=== PATIENT | male | born 1935 | race Hispanic/Latino ===

== ENCOUNTER 2020-01-25 14:18 | Inpatient (IN) | payer MEDICARE, OTHER ==
[~2020-01-25] VITALS: Ht 165.1 cm; Wt 105.7 kg
[~2020-01-25 14:18] MED LIST: ADVIL200 M1 PO; ASPIRIN81 MG PO; CARVEDILOL12.5 MG PO; CINNAMON500 MG PO; COREG; FINASTERIDE5 MG PO; GLIMEPIRIDE2 MG PO; HCTZ; HYDROCHLOROTHIA25 MG PO; LISINOPRIL10 MG PO; MAXZIDE; MELOXICAM7.5 MG PO; METFORMIN; PROAIR HFA INH8.5 GM INH; VANADYL SULFATE1 GM PO; Z.0.COREG12.5 MG PO; Z.0.HUMULIN R100 UNI; Z.0.LISINOPRIL10 MG PO; [UNRECOGNIZED DRUG - OTHER] PO; [UNRECOGNIZED DRUG - OTHER] TD
[2020-01-25] MEDS ORDERED: VANCOMYCIN 1GM/NS 250 ML 250 ML IV ONE (14:20)
[2020-01-25] MEDS ORDERED: ONDANSETRON HCL INJ 2MG/ML 2ML 2 MG/ML VIAL IV ONE (14:20)
[2020-01-25] MEDS ORDERED: SODIUM CHLORIDE 0.9% 1000ML 1,000 ML IV STA (14:20)
[2020-01-25] MEDS ORDERED: PIPER-TAZ 3.375 GM 50 ML IV ONE (14:20)
--- NOTE | 2020-01-25 14:31 | Emergency Department Note ---
History of Present Illnes History of Present Illness History of Present Illness This is a 84 year old male . presented to ed via ems c/o infected r foot x 5 days + swelling redness foul smell Arrival Mode: ems Onset (how long ago): day(s) (5 days) Radiation: non-radiation, back, neck, extremity, abdomen, periumbilical, flank, proximal, distal, other Severity: mild Onset quality: gradual Duration (how long): hour(s) (5 days) Timing of current episode: constant Progression: worsening Context: recent illness, recent surgery, recent immobilization, recent travel, trauma/injury, new medications, hx of DVT/PE, non-compliance w/ medications, other Relieving factors: none Exacerbating factors: none Treatments prior to arrival: none Past Medical/Family History Physician Review I have reviewed the patient's past medical and family history. Any updates have been documented here. Past Medical History Recent Fever: No Clinical Suspicion of Infectio: Yes New/Unexplained Change in Ment: No Other Surgery: TURP Social History Smoking Cessation: Never Smoker Alcohol Use: None Any Illegal Drug Use: No TB Exposure/Symptoms: No Family History Family history of heart diseas: No Other Last Tetanus: NA Any Pre-Existing Lines (PICC,: No Review of Systems Review of Systems Constitutional: no symptoms EENTM: no symptoms Cardiovascular: no symptoms Respiratory: no symptoms Gastrointestinal: no symptoms Genitourinary: no symptoms Musculoskeletal: other (c/o redness swelling r foot) Neurological: no symptoms Psychological: no symptoms Endocrine: no symptoms Hematological/Lymphatic: no symptoms Review of other systems All other systems reviewed and negative. Physical Exam Related Data Allergies: Coded Allergies: No Known Drug Allergies (Unverified Allergy, Unknown, 11/22/16) Physical Exam CONSTITUTIONAL Constitutional: well-developed, well-nourished HENT HENT: normocephalic, atraumatic, oropharynx clear/moist, nose normal HENT L/R: left ext ear normal, right ext ear normal EYES Eyes: PERRL, conjunctivae normal NECK Neck: ROM normal PULMONARY Pulmonary: effort normal, breath sounds normal CARDIOVASCULAR Cardiovascular: regular rhythm, heart sounds normal, capillary refill normal, normal rate GASTROINTESTINAL Abdominal: soft, nontender, bowel sounds normal GENITOURINARY Genitourinary: exam deferred SKIN MUSCULOSKELETAL Musculoskeletal: other (c/or foot swelling redness discomfort x 5 days / exam c/w infection + cellulitis concern for osteomylitis) NEUROLOGICAL Neurological: alert, oriented x 3, no gross motor or sensory deficits PSYCHOLOGICAL Psychological: mood/affect normal, judgement normal Procedures 12 Lead ECG Interpretation [facility] Director: Interpreted by ED physician (majo ) Date: January 25, 2020 Time: 15:13 Prior CONTRACT SPECIALIST tracings: reviewed Rhythm: sinus rhythm Rate: normal BPM: 75 QRS axis: left ST segments normal: Yes T waves normal: Yes Clinical Impression: normal ECG Critical Care Time Subsequent provider I assumed direction of critical care for this patient from another provider of my specialty. Assessment & Plan Reassessment Reassessment time: 14:27 Reassessment 84y m presented to ed c/o r foot swelling redness x 5 days exam c/w cellulitis concerning for osteomyelitis foot has foul smell - Dr Johnson in eval pt status - lab rad ordered pt medicated w/ vancomycin zosyn - discussed plan to admit for iv abx Assessment & Plan Final Impression: (1) Cellulitis of right foot Assessment & Plan Dr Johnson re eval pt status discussed lab rad results plan of care and need for admit Dr Johnson spoke w/ Dr Contreras will admit Depart Disposition: ADMITTED Home Meds Reported Medications Vanadyl Sulfate (VANADYL SULFATE) 1 Gm Crystals, 2 MG PO DAILY 12/29/14 Albuterol Sulf* (PROAIR HFA INHALER*) 8.5 Gm Inh, 8.5 G INH PRN PRN for SHORTNESS OF BREATH 12/29/14 Cinnamon Bark (CINNAMON) 500 Mg Capsule, 500 MG PO BID 12/29/14 Ibuprofen (ADVIL) 200 Mg Capsule, 200 MG PO DAILY, #2 12/29/14 Aspirin (ASPIRIN) 81 Mg Tab.chew, 81 MG PO 12/29/14 Finasteride (FINASTERIDE) 5 Mg Tablet, 5 MG PO DAILY, #30 TAB 12/29/14 Hydrochlorothiazide (HYDROCHLOROTHIAZIDE) 25 Mg Tablet, 25 MG PO DAILY, #30 TAB 12/29/14 Meloxicam (MELOXICAM) 7.5 Mg Tablet, 15 MG PO DAILY, #30 TAB 12/29/14 Glimepiride (GLIMEPIRIDE) 2 Mg Tablet, 1 MG PO DAILY, TAB 12/29/14 Lisinopril (LISINOPRIL) 10 Mg Tablet, 20 MG PO BID, #30 TAB 12/29/14 Carvedilol (CARVEDILOL) 12.5 Mg Tablet, 12.5 MG PO BID, #60 TAB 12/29/14 ALAINA OCHOA NP January 25, 2020 14:31
[2020-01-25] MEDS ORDERED: MORPHINE SULFATE 2 MG/ML SYR 1ML IV PRN (15:15)
[2020-01-25] MEDS ORDERED: ONDANSETRON HCL INJ 2MG/ML 2ML 2 MG/ML VIAL IV PRN (15:15)
[2020-01-25 15:21] LABS: BASOPHILS % 0.6 % (0.0-1.0); EOSINOPHILS # (AUTO) 0.1 (0.0-0.4); EOSINOPHILS % 1.9 % (0.0-6.0); HEMOGLOBIN 13.5 g/dL (14.0-18.0); LYMPHOCYTES # (AUTO) 1.1 (1.0-3.2); LYMPHOCYTES % 15.9 % (18.0-39.1); MEAN CORPUSCULAR HEMOGLOBIN 24.5 pg (28-32); MEAN CORPUSCULAR HGB CONC 30.7 g/dL (31-35); MEAN CORPUSCULAR VOLUME 79.9 fL (81-99); MONOCYTES # (AUTO) 0.8 (0.2-0.8); MONOCYTES % 11.1 % (4.4-11.3); NEUTROPHILS % 70.1 % (38.7-80.0); PLATELET COUNT 102 x10e3/uL (140-360); RED BLOOD COUNT 5.51 x10e6/uL (4.3-5.7); RED CELL DISTRIBUTION WIDTH 13.2 % (11.7-14.4)
[2020-01-25 15:29] LABS: INR 1.11
[2020-01-25 15:30] LABS: PARTIAL THROMBOPLASTIN TIME 36.2 seconds (23.8-35.5)
[2020-01-25 15:39] LABS: ALANINE AMINOTRANSFERASE 13 IU/L (0-55); ALBUMIN 3.2 g/dL (3.5-5.0); ALBUMIN/GLOBULIN RATIO 0.8 (0.8-2.0); ALKALINE PHOSPHATASE 71 IU/L (40-150); ANION GAP 14.5 mmol/L (8-16); BLOOD UREA NITROGEN 16 mg/dL (7-26); BUN/CREATININE RATIO 19 (6-25); CALCIUM 8.2 mg/dL (8.4-10.2); CARBON DIOXIDE 30 mmol/L (22-29); CHLORIDE 96 mmol/L (98-107); CREATINE KINASE 39 IU/L (30-200); CREATININE, SERUM 0.85 mg/dL (0.72-1.25); EST GLOMERULAR FILTRATION RATE > 60 ML/MIN (60-); GLUCOSE 124 mg/dL (74-118); POTASSIUM 4.5 mmol/L (3.5-5.1); SODIUM 136 mmol/L (136-145)
[2020-01-25] MEDS: MORPHINE SULFATE INJ 4 MG/ML INJ 1ML IV PRN (15:41)
--- NOTE | 2020-01-25 15:45 | NUR ---
Patients home medications reconcilled.
--- NOTE | 2020-01-25 15:48 | Diagnostic Imaging Report ---
Examination: Single AP view of the chest. COMPARISON: Portable chest 11/15/2011 INDICATION: Diabetic foot infection IMPRESSION: 1. Lines and Tubes: None 2. Lungs are well inflated. Linear subsegmental atelectasis in bilateral lower lobes. No consolidation or effusion. 3. Cardiomediastinal silhouette is normal. Pulmonary vasculature is normal. 4. No acute bony abnormalities. Signed by: Dr. Maurice Johnson M.D. on 01/25/2020 3:45 PM
[2020-01-25 15:52] LABS: B-TYPE NATRIURETIC PEPTIDE2 110.2 pg/mL (0-100)
--- NOTE | 2020-01-25 15:52 | Diagnostic Imaging Report ---
Exam: Right foot series, 3 views. Clinical History: Right foot infection and swelling with discharge for 5 days Comparison: None. Findings: 3 views of the right foot. There is decreased bone mineralization, which limits evaluation of the bony structures.. Negative for acute, displaced fracture or dislocation. No areas of cortical erosion or destruction are identified, within the limitations of the study. Degenerative changes in the first metatarsophalangeal joint with hallux valgus deformity. Degenerative changes are also noted in the midfoot/hindfoot joints. Large anterior calcaneal enthesophyte. Vascular calcifications. Marked generalized soft tissue swelling, worse in the dorsal aspect of the foot. No soft tissue lucencies to suggest gas Impression: 1. Osteopenia limits evaluation of the bony structures. No areas of cortical erosion or destruction are identified to suggest osteomyelitis, within the limitations of the study. 2. Marked generalized soft tissue swelling, worse in the dorsal aspect of the foot. No soft tissue lucencies to suggest gas. Correlate for cellulitis. Signed by: Dr. Maurice Johnson M.D. on 01/25/2020 3:49 PM
--- NOTE | 2020-01-25 16:29 | NUR ---
Patients daughter and emergency contact: Kika Schumacher [phone]
[2020-01-25 17:15] VITALS: BP_SYST 111; BP_SYST 146; BP_DIAS 63; BP_DIAS 71
--- NOTE | 2020-01-25 17:15 | NUR ---
PATIENT RECEIVED FROM ER PER STRETCHER. ALERT AND VERBALLY RESPONSIVE, MOSTLY SYRIAN SPEAKING, DAUGHTER AT BED SIDE. SKIN WARM AND DRY TO TOUCH, REDNESS, SWELLING , PEALING, AND OPEN BLISTERS TO RIGHT FOOT. SWELLING AND DRYNESS TO LEFT FOOT. RESPIRATION EVEN AND UNLABORED. ABDOMEN SOFT ROUND, AND LARGE. TELEMETRY BOX [address] BED IN LOWER POSITION, CALL LIGHT AT REACH. INSTRUCTED TO CALL FOR ASSISTANCE NEEDED.
[2020-01-25] MEDS: SODIUM CHLORIDE 0.9% 1000ML 1,000 ML IV SCH (17:29)
[2020-01-25 20:00] VITALS: BP 97/54
[2020-01-25 20:30] VITALS: BP 97/54
--- NOTE | 2020-01-25 20:30 | NUR ---
PATIENT RESTING IN BED IN STABLE CONDITION, NO SIGNS OF DISTRESS NOTED. IV FLUIDS ARE RUNNING AT ORDERED RATE AND PATIENT VOICES NO PAIN AT THIS TIME. NASAL CANNULA IS INTACT AND RUNNING AT 2 LITERS. WOUND NOTED TO RIGHT FOOT, IT IS REDDENED AND OPEN TO AIR, MINIMAL DRAINAGE NOTED. BED IS IN LOW POSITION, SIDE RAILS ARE UP, CALL LIGHT IS WITHIN EASY REACH, WILL CONTINUE TO MONITOR.
--- NOTE | 2020-01-25 23:00 | NUR ---
WITH ASSISTANCE PATIENT ATTEMPTED TO STAND ON BOTH FEET TO USE THE URINAL. PATIENT STRUGGLED STAND ON TWO FEET AND WALKER WAS USED. MODERATE AMOUNT OF BLOOD SEEPED FROM RIGHT FOOT UPON STANDING AND PATIENT WAS SAFELY PLACED BACK IN BED. RIGHT FOOT WAS WRAPPED IN DRESSING, AND PATIENT WAS ENCOURAGED NOT TO STAND ON BOTH FEET FOR THE TIME BEING. CONTINUING TO MONITOR.
[2020-01-25] MEDS: PIPER-TAZ 3.375 GM 50 ML IV SCH (23:39)
[2020-01-26] VITALS (7 sets, daily range): BP systolic 126–148; BP diastolic 62–84
--- NOTE | 2020-01-26 03:00 | NUR ---
PATIENT'S IV SITE HAS BECOME DISLODGED AND NEW IV SITE STARTED ON LEFT HAND.
[2020-01-26] MEDS: SODIUM CHLORIDE 0.9% 1000ML 1,000 ML IV SCH (05:45)
[2020-01-26 06:11] LABS: BASOPHILS % 0.7 % (0.0-1.0); EOSINOPHILS # (AUTO) 0.1 (0.0-0.4); EOSINOPHILS % 1.8 % (0.0-6.0); HEMATOCRIT 40.3 % (38.2-49.6); HEMOGLOBIN 12.1 g/dL (14.0-18.0); LYMPHOCYTES # (AUTO) 1.3 (1.0-3.2); LYMPHOCYTES % 20.4 % (18.0-39.1); MEAN CORPUSCULAR HEMOGLOBIN 24.5 pg (28-32); MEAN CORPUSCULAR VOLUME 81.6 fL (81-99); MONOCYTES # (AUTO) 0.8 (0.2-0.8); MONOCYTES % 12.4 % (4.4-11.3); NEUTROPHILS % 64.4 % (38.7-80.0); PLATELET COUNT 93 x10e3/uL (140-360); RED BLOOD COUNT 4.94 x10e6/uL (4.3-5.7); RED CELL DISTRIBUTION WIDTH 13.3 % (11.7-14.4)
[2020-01-26 06:31] LABS: ALANINE AMINOTRANSFERASE 11 IU/L (0-55); ALBUMIN 2.7 g/dL (3.5-5.0); ALBUMIN/GLOBULIN RATIO 0.7 (0.8-2.0); ALKALINE PHOSPHATASE 61 IU/L (40-150); ANION GAP 12.2 mmol/L (8-16); BLOOD UREA NITROGEN 18 mg/dL (7-26); BUN/CREATININE RATIO 19 (6-25); CALCIUM 7.7 mg/dL (8.4-10.2); CARBON DIOXIDE 31 mmol/L (22-29); CHLORIDE 100 mmol/L (98-107); CREATININE, SERUM 0.97 mg/dL (0.72-1.25); EST GLOMERULAR FILTRATION RATE > 60 ML/MIN (60-); GLUCOSE 113 mg/dL (74-118); POTASSIUM 4.2 mmol/L (3.5-5.1); SODIUM 139 mmol/L (136-145)
[2020-01-26] MEDS: PIPER-TAZ 3.375 GM 50 ML IV SCH ×3 (06:31→23:24)
--- NOTE | 2020-01-26 07:10 | NUR ---
PATIENT IN BED RESTING WITH EYES CLOSED, NO DISTRESS NOTED. DRESSING INTACT TO RIGHT FOOT. IV FLUID INFUSING ORDERED. BED IN LOWER POSITION, CALL LIGHT AT REACH.
[2020-01-26] MEDS: VANCOMYCIN 1GM/NS 250 ML 250 ML IV SCH (08:54)
[2020-01-26] MEDS ORDERED: ALBUTEROL SULFATE HFA 8GM INHALATION AEROSOL INH PRN (10:30)
--- NOTE | 2020-01-26 11:30 | NUR ---
PATIENT OFF UNIT TO RADIOLOGY.
--- NOTE | 2020-01-26 12:40 | NUR ---
PATIENT BACK TO UNIT FROM RADIOLOGY, SITTING UP IN BED EATING LUNCH. CALL LIGHT AT REACH.
--- NOTE | 2020-01-26 13:43 | Diagnostic Imaging Report ---
TECHNIQUE: Magnetic resonance imaging of the RIGHT foot was performed WITHOUT injected contrast. HISTORY: Right foot pain, cellulitis COMPARISON: None available. DISCUSSION: Soft tissue swelling, subcutaneous edema, and skin thickening predominantly involving the dorsal aspect of the foot. No visualized ulceration or sinus tract extending to bone. No osteomyelitis. No soft tissue abscess. IMPRESSION: Cellulitis of the right foot without abscess or osteomyelitis Signed by: Dr. Xavier Singletary M.D. on 01/26/2020 1:39 PM
--- NOTE | 2020-01-26 14:17 | NUR ---
WOUND CARE CONSULT FOR 84 YO MALE HX OF CELLULITIS RT FOOT [place] 14 ON MODERATE PUP STATUS AND INTERVENTIONS AND ALTERNATING PRESSURE MATTRESS LABS: WBC-6.14 HGB_12.2 GLUCOSE-113 X-RAY DONE - 01/24 MRI PEND SKIN ASSESSMENT COMPLETE PATIENT PRESENTS WITH RIGHT FOOT PLANTAR SURFACE GENERALIZED BLISTER OPEN PINK CENTRAL PORTION SURROUNDED BY DARKENED PORTION RECOMMENDATIONS: NURSING TO CONTINUE TO MAINTAIN MODERATE PUP STATUS AND INTERVENTIONS AND ALTERNATING PRESSURE MATTRESS NURSING TO CONTINUE TO ASSIST PATIENT OUT OF BED FOR MEALS AND MUCH TOLERATED NURSING TO CONTINUE TO ASSIST PATIENT NEEDED WITH MEALS AND NUTRITIONAL SUPPLEMENTS TO ENSURE PROPER REQUIREMENTS FOR HEALING NURSING TO CONTINUE TO OFFLOAD FEET AND HEELS NEEDED WITH PILLOW SUSPENSION WHEN IN BED NURSING TO CLEAN RIGHT FOOT PLANTAR SURFACE BLISTER WITH NORMAL SALINE DAILY AND APPLY BETADINE GAUZE ABD PAD AND WRAP WITH KERLIX Addendum: 01/26/20 at 1425 by Roger Wong RN Amended: Links added.
[2020-01-26] MEDS ORDERED: AMLODIPINE BESYL5 MG PO (15:14)
[2020-01-26] MEDS ORDERED: SYMBICORT 16010.2 GM PO (15:17)
[2020-01-26] MEDS: CINNAMON BARK 500 MG PO SCH (17:00)
[2020-01-26] MEDS: CARVEDILOL 12.5 MG TAB PO SCH (17:15)
[2020-01-26] MEDS: LISINOPRIL 20 MG TAB PO SCH (17:16)
--- NOTE | 2020-01-26 18:52 | Consultation ---
DATE OF CONSULTATION: 01/26/2020 REASON FOR CONSULTATION: Cellulitis of the right lower extremity with the patient being an insulin-dependent diabetic. HISTORY OF PRESENT ILLNESS: A pleasant 84-year-old male, who is known to me from several years back. Has not been seen in the office since 2018, who relates he has had cellulitis and swelling and tenderness to the right lower extremity for more than three months. He is currently denying any history of fever, chills, nausea, or vomiting. PAST MEDICAL HISTORY: Remarkable for hyperlipidemia, insulin-dependent diabetes, hypercholesteremia, and hypertension. PAST SURGICAL HISTORY: The patient denies. ALLERGIES: THE PATIENT DENIES. CURRENT MEDICATIONS: Include IV Zosyn and vancomycin. SOCIAL HISTORY: Does not drink, smoke or do any type of recreational drug use. FAMILY HISTORY: Noncontributory. OBJECTIVE: VITAL SIGNS: Temp of 99.5, pulse rate 84, respirations 22, blood pressure 126/66 O2 saturation 94%. Podiatric physical examination reveals the following: VASCULATURE: Pedal pulses of both the DP and PT are diminished to both lower extremities. NEUROLOGICAL: Shows loss of protective sensation when utilizing [place] 5.07 monofilament wire. MUSCULOSKELETAL: Shows muscle mass to be asymmetrical, some swelling and redness noted to right foot and leg when compared to the left with some foul smell present. DERMATOLOGICAL: Reveals no open lesions with cellulitis and foul smell. Plantar and dorsal aspect of both feet, right worse than left. REVIEW OF SYSTEMS: CARDIAC: Denies any palpitations or arrhythmias. RESPIRATORY: Denies any shortness of breath or productive cough. GASTROINTESTINAL: Denies any diarrhea or constipation. LABORATORY DATA: Labs noted with a white blood cell count of 6.14, hemoglobin 12.1 with a platelet count of 93. ASSESSMENT: Cellulitis, diabetic neuropathy with decreased circulatory status to both the DP and PT. PLAN: We will continue IV antibiotics. We will continue diluted wet-to-dry Betadine. Three-view x-rays of the right foot were ordered. Noninvasive arterial Doppler studies were ordered. We will continue to follow. EVY Farley/WILLARD /[id number]
[2020-01-26] MEDS ORDERED: ONDANSETRON HCL 4 MG ORAL DISINTEGRATING TAB PO PRN (19:45)
--- NOTE | 2020-01-26 20:45 | NUR ---
PATIENT RESTING IN BED IN STABLE CONDITION, NO SIGNS OF RESPIRATORY DISTRESS NOTED. IV FLUIDS ARE RUNNING AT ORDERED RATE AND PATIENT VOICES NO PAIN AT THIS TIME. NASAL CANNULA IS INTACT AND RUNNING AT 2 LITERS. WOUND NOTED TO RIGHT FOOT, DRESSING IS CLEAN, DRY, AND INTACT. BED IS IN LOW POSITION, SIDE RAILS ARE UP, CALL LIGHT IS WITHIN EASY REACH, WILL CONTINUE TO MONITOR.
[2020-01-27] VITALS (8 sets, daily range): BP systolic 126–146; BP diastolic 60–79
[2020-01-27] MEDS: MORPHINE SULFATE INJ 4 MG/ML INJ 1ML IV PRN ×2 (02:01→09:23)
[2020-01-27 06:13] LABS: BASOPHILS % 0.6 % (0.0-1.0); EOSINOPHILS # (AUTO) 0.4 (0.0-0.4); EOSINOPHILS % 4.9 % (0.0-6.0); HEMATOCRIT 40.1 % (38.2-49.6); HEMOGLOBIN 12.2 g/dL (14.0-18.0); LYMPHOCYTES # (AUTO) 1.7 (1.0-3.2); LYMPHOCYTES % 24.3 % (18.0-39.1); MEAN CORPUSCULAR HEMOGLOBIN 25.5 pg (28-32); MEAN CORPUSCULAR HGB CONC 30.4 g/dL (31-35); MEAN CORPUSCULAR VOLUME 83.9 fL (81-99); MONOCYTES # (AUTO) 0.9 (0.2-0.8); MONOCYTES % 11.9 % (4.4-11.3); NEUTROPHILS # (AUTO) 4.2 (2.1-6.9); PLATELET COUNT 98 x10e3/uL (140-360); RED BLOOD COUNT 4.78 x10e6/uL (4.3-5.7); RED CELL DISTRIBUTION WIDTH 13.5 % (11.7-14.4)
[2020-01-27 06:51] LABS: ANION GAP 9.1 mmol/L (8-16); BLOOD UREA NITROGEN 19 mg/dL (7-26); BUN/CREATININE RATIO 18 (6-25); CALCIUM 8.4 mg/dL (8.4-10.2); CARBON DIOXIDE 33 mmol/L (22-29); CHLORIDE 100 mmol/L (98-107); CREATININE, SERUM 1.03 mg/dL (0.72-1.25); EST GLOMERULAR FILTRATION RATE > 60 ML/MIN (60-); GLUCOSE 103 mg/dL (74-118); POTASSIUM 4.1 mmol/L (3.5-5.1); SODIUM 138 mmol/L (136-145)
[2020-01-27] MEDS: PIPER-TAZ 3.375 GM 50 ML IV SCH ×3 (07:19→23:05)
[2020-01-27] MEDS: CINNAMON BARK 500 MG PO SCH ×2 (09:00→16:39)
[2020-01-27] MEDS: VANADYL SULFATE PO SCH (09:00)
[2020-01-27] MEDS: IBUPROFEN 200 MG TAB PO SCH (09:07)
[2020-01-27] MEDS: MELOXICAM 7.5 MG TAB PO SCH (09:07)
[2020-01-27] MEDS: LISINOPRIL 20 MG TAB PO SCH ×2 (09:08→16:41)
[2020-01-27] MEDS: HYDROCHLOROTHIAZIDE 25 MG TAB PO SCH (09:08)
[2020-01-27] MEDS: ASPIRIN 81 MG CHEW TAB PO SCH (09:09)
[2020-01-27] MEDS: VANCOMYCIN 1GM/NS 250 ML 250 ML IV SCH (09:09)
[2020-01-27] MEDS: GLIMEPIRIDE 2 MG TAB PO SCH (09:09)
[2020-01-27] MEDS: CARVEDILOL 12.5 MG TAB PO SCH ×2 (09:09→16:41)
[2020-01-27] MEDS: FINASTERIDE 5 MG TAB PO SCH (09:11)
[2020-01-27] MEDS ORDERED: HYDROMORPHONE 1MG/1ML INJ IV PRN (12:30)
--- NOTE | 2020-01-27 18:52 | Consultation ---
DATE OF CONSULTATION: 01/27/2020 SUBJECTIVE: The patient is seen at bedside, doing better. Denying any history of fever, chills, nausea, or vomiting. OBJECTIVE: VITALS: Afebrile, pulse 89, respirations 16, blood pressure 136/60, O2 saturation 98%. LABORATORY DATA: Labs show white blood cell count 7.15. X-rays negative for any gas in the tissue. MRI showed no evidence of type of osteomyelitis. Pedal pulses are palpable. Positive edema and cellulitis to the plantar aspect and dorsal aspect of the right foot with cellulitis up the leg. ASSESSMENT: Lymphedema, cellulitis, and diabetes. PLAN: Continue IV antibiotics. Continue local wound care. Continue offloading. We will continue to follow. EVY Farley/WILLARD /[id number]
--- NOTE | 2020-01-27 19:05 | NUR ---
Bedside nursing shift report with morning nurse. Pt alert and orient, lying in bed HOB 60 degrees. Denies pain at this time. Call light within reach. Bed low and locked.
--- NOTE | 2020-01-27 19:25 | NUR ---
Report given to oncoming nurse of patient's status. Resting in bed. No s/s of acute distress noted. Dressing to right foot clean, dry, and intact. Side rails upx2, call light within reach, bed alarm on.
[2020-01-28] VITALS (8 sets, daily range): BP systolic 106–158; BP diastolic 69–90
[2020-01-28 05:50] LABS: BASOPHILS # (AUTO) 0.1 (0.0-0.1); BASOPHILS % 0.8 % (0.0-1.0); EOSINOPHILS # (AUTO) 0.3 (0.0-0.4); EOSINOPHILS % 5.2 % (0.0-6.0); HEMOGLOBIN 12.4 g/dL (14.0-18.0); LYMPHOCYTES # (AUTO) 1.4 (1.0-3.2); LYMPHOCYTES % 23.8 % (18.0-39.1); MEAN CORPUSCULAR HEMOGLOBIN 25.1 pg (28-32); MEAN CORPUSCULAR HGB CONC 30.2 g/dL (31-35); MONOCYTES # (AUTO) 0.6 (0.2-0.8); MONOCYTES % 9.7 % (4.4-11.3); NEUTROPHILS # (AUTO) 3.6 (2.1-6.9); NEUTROPHILS % 60.2 % (38.7-80.0); PLATELET COUNT 112 x10e3/uL (140-360); RED BLOOD COUNT 4.94 x10e6/uL (4.3-5.7); RED CELL DISTRIBUTION WIDTH 13.2 % (11.7-14.4)
[2020-01-28 06:10] LABS: ANION GAP 10.9 mmol/L (8-16); BLOOD UREA NITROGEN 17 mg/dL (7-26); BUN/CREATININE RATIO 20 (6-25); CALCIUM 8.5 mg/dL (8.4-10.2); CARBON DIOXIDE 35 mmol/L (22-29); CHLORIDE 96 mmol/L (98-107); CREATININE, SERUM 0.84 mg/dL (0.72-1.25); EST GLOMERULAR FILTRATION RATE > 60 ML/MIN (60-); GLUCOSE 148 mg/dL (74-118); POTASSIUM 3.9 mmol/L (3.5-5.1); SODIUM 138 mmol/L (136-145)
[2020-01-28] MEDS: PIPER-TAZ 3.375 GM 50 ML IV SCH ×3 (06:47→23:36)
--- NOTE | 2020-01-28 06:58 | NUR ---
Report given to morning nurse, Pt resting in bed. No s/s of acute distress noted. Call light within reach.
[2020-01-28] MEDS: ASPIRIN 81 MG CHEW TAB PO SCH (09:11)
[2020-01-28] MEDS: GLIMEPIRIDE 2 MG TAB PO SCH (09:11)
[2020-01-28] MEDS: VANCOMYCIN 1GM/NS 250 ML 250 ML IV SCH (09:11)
[2020-01-28] MEDS: CINNAMON BARK 500 MG PO SCH ×2 (09:11→17:27)
[2020-01-28] MEDS: IBUPROFEN 200 MG TAB PO SCH (09:12)
[2020-01-28] MEDS: MELOXICAM 7.5 MG TAB PO SCH (09:12)
[2020-01-28] MEDS: CARVEDILOL 12.5 MG TAB PO SCH ×2 (09:12→17:27)
[2020-01-28] MEDS: HYDROCHLOROTHIAZIDE 25 MG TAB PO SCH (09:12)
[2020-01-28] MEDS: VANADYL SULFATE PO SCH (09:12)
[2020-01-28] MEDS: LISINOPRIL 20 MG TAB PO SCH ×2 (09:13→17:28)
[2020-01-28] MEDS: FINASTERIDE 5 MG TAB PO SCH (09:13)
--- NOTE | 2020-01-28 12:04 | Progress Note ---
DATE: 01/28/2020 SUBJECTIVE: The patient is seen at bedside, somewhat confused this morning, but denying any history of fever, chills, nausea, or vomiting. OBJECTIVE: VITAL SIGNS: Afebrile, pulse rate 106, respiration 19, blood pressure 155/83, and O2 saturation 98%. EXTREMITIES: Cellulitis of the right lower extremity getting better. Still swollen when compared to contralateral side. LABORATORY DATA: Show white blood cell count of 5.96. ASSESSMENT: Cellulitis, lymphedema with diabetic neuropathy and decreased circulatory status. PLAN: We will continue local wound care with Bactroban, followed by diluted wet-to-dry Betadine. Continue IV antibiotics. We will continue to follow. Continue offloading. EVY Farley/WILLARD /[id number]
[2020-01-28] MEDS: MORPHINE SULFATE INJ 4 MG/ML INJ 1ML IV PRN (14:00)
--- NOTE | 2020-01-28 19:10 | NUR ---
Bedside nursing shift report completed with morning nurse. Pt alert and oriented to name, lying in bed HOB 75 degrees. Pt denies pain at this time. Call light within reach. Call light within reach. Bed low and locked.
[2020-01-29] VITALS: BP 134/67
[2020-01-29 04:00] VITALS: BP 155/72
[2020-01-29] MEDS: PIPER-TAZ 3.375 GM 50 ML IV SCH ×2 (07:10→14:45)
[2020-01-29 08:22] VITALS: BP 151/73
[2020-01-29 09:00] VITALS: BP 151/73
[2020-01-29 11:51] VITALS: BP 158/79
[2020-01-29] MEDS: FINASTERIDE 5 MG TAB PO SCH (11:58)
[2020-01-29] MEDS: VANCOMYCIN 1GM/NS 250 ML 250 ML IV SCH (11:59)
[2020-01-29] MEDS: HYDROCHLOROTHIAZIDE 25 MG TAB PO SCH (11:59)
[2020-01-29] MEDS: CINNAMON BARK 500 MG PO SCH (11:59)
[2020-01-29] MEDS: IBUPROFEN 200 MG TAB PO SCH (11:59)
[2020-01-29] MEDS: ASPIRIN 81 MG CHEW TAB PO SCH (11:59)
[2020-01-29] MEDS: VANADYL SULFATE PO SCH (11:59)
[2020-01-29] MEDS: CARVEDILOL 12.5 MG TAB PO SCH (11:59)
[2020-01-29] MEDS: GLIMEPIRIDE 2 MG TAB PO SCH (11:59)
[2020-01-29] MEDS: LISINOPRIL 20 MG TAB PO SCH (11:59)
[2020-01-29] MEDS: MELOXICAM 7.5 MG TAB PO SCH (11:59)
--- NOTE | 2020-01-29 12:11 | NUR ---
ORDER RECEIVED FOR [facility]/ [facility]. CALL TO PT'S DTR JANETT HINTON @ [phone]. DISCUSSED [facility] CHOICE. DTR AGREED W DOC'S RECOMMENDATION FOR [facility]. CHOICE LETTER WAS SIGNED BY T/O TO ERICA AND ROSMERY DACOSTA AND PLACED IN THE CHART. INITIATED MOT.
--- NOTE | 2020-01-29 14:25 | Progress Note ---
DATE: 01/29/2020 SUBJECTIVE: The patient is seen at bedside, doing better. Decreased discomfort to right lower extremity. Denying any history of fever, chills, nausea, or vomiting. OBJECTIVE: VITAL SIGNS: Afebrile, pulse rate 69, respirations 20, blood pressure 155/72, and O2 saturation 97%. EXTREMITIES: Decreased cellulitis and edema noted to right lower extremity with still some cellulitis to the plantar aspect right foot with some superficial necrosis noted. LABORATORY DATA: Show white blood cell of 5.96. ASSESSMENT: Cellulitis, edema, diabetic neuropathy of the right foot. PLAN: We will continue local wound care with diluted wet-to-dry Betadine. Continue IV antibiotics. Continue offloading. We will continue to follow. EVY Farley/WILLARD /[id number]
[2020-01-29 16:29] VITALS: BP 142/70
--- NOTE | 2020-01-29 16:45 | NUR ---
Patient discharged per Dr. Contreras's order to LT[facility], [facility]. Report was called to ROSMERY Laird at [facility] at 1407. Patient was discharged with his right AC 20 gauge. Patient was sent with all his current med list. Patient verbalized no complaints or questions during the process. Patient's daughter at bedside and is aware.
== END 2020-01-29 16:29 | DRG 638 ==
LOC: ER 14:18 → ERHOLD 14:22 → MED/SURG3 16:37
DX: E11.628 Type 2 diabetes mellitus with other skin complications (principal); L03.115 Cellulitis of right lower limb; E78.5 Hyperlipidemia, unspecified; I10 Essential (primary) hypertension; E78.00 Pure hypercholesterolemia, unspecified; E11.42 Type 2 diabetes mellitus with diabetic polyneuropathy; I89.0 Lymphedema, not elsewhere classified; Z79.4 Long term (current) use of insulin
CPT/HCPCS: 36415; 71045; 80048; 80053; 80202; 82550; 82553; 82948; 83605; 83880; 84484; 85025; 85610; 85730; 87040; 87635; 93005; 93925; 97139; 99251; 99284; J1170; J2270; J2405; J2543; J3370; J7030